=== PATIENT | female | born 1965 | race Caucasian/White ===

== ENCOUNTER → 2023-09-28 14:32 | Outpatient (REF) | payer OTHER, SELFPAY | LOC: RCS 14:32 | PROVIDERS: ATTENDING PHYSICIAN Internal Medicine Interventional Cardiology; FAMILY PHYSICIAN Family Medicine | DX: R00.2 Palpitations (principal); R07.9 Chest pain, unspecified; R06.09 Other forms of dyspnea | CPT/HCPCS: 93306 ==

== ENCOUNTER → 2023-09-29 08:27 | Outpatient (REF) | payer OTHER, SELFPAY | LOC: DHCBC/DCA 08:27 | PROVIDERS: ATTENDING PHYSICIAN Internal Medicine Interventional Cardiology; FAMILY PHYSICIAN Family Medicine | DX: R00.2 Palpitations (principal); R07.9 Chest pain, unspecified; R06.09 Other forms of dyspnea | CPT/HCPCS: 78452; 93017; A9500 ==

== ENCOUNTER → 2023-12-12 11:14 | Outpatient (REF) | payer OTHER, SELFPAY | LOC: RAD 11:14 | PROVIDERS: ATTENDING PHYSICIAN Internal Medicine Cardiovascular Disease; FAMILY PHYSICIAN Family Medicine | DX: R07.9 Chest pain, unspecified (principal) | CPT/HCPCS: 75574; Q9967 ==

== ENCOUNTER 2025-01-10 17:01 | Emergency (ER) | payer SELFPAY ==
[2025-01-10 17:04] VITALS: BP 157/80
--- NOTE | 2025-01-11 00:41 | ED.GENMED ---
History of Present Illness
General
Chief Complaint: Back Pain
Exam Limitations: none
Time Seen by Provider: 01/10/25 18:24
Nursing documentation reviewed up to this point in time: agreed with
History of Present Illness
History of Present Illness:
Patient states she injured her back approx 3 weeks ago at work while lifting. Initially seen at another ED. Had CT of low back completed. SHe states exam was normal. SHe was seen by workmans comp placed on NSaids and the returned to work on light
duty. She states the pain continues to worsen. Brought self to ED for eval. No weakness in extremities, no bowel or bladder symptoms, no saddle paresthesia.
Past History
Past History
ED Past Medical History: Asthma, Psychiatric (Depression, anxiety) and Other (Kidney stones, previous pancreatitis, IBS)
ED Past Surgical History: Gynecological (Hysterectomy)
Social History
Tobacco: Smoker
Alcohol: Daily
Personal:
Living: with family
Family History
Family History: Other (Alzheimer's)
Review of Systems
Review of Systems
Allergies reviewed?: Yes
All Other Systems: ROS reviewed and negative except as documented in HPI and ROS
Constitutional: Reports no symptoms
EENT: Reports no symptoms
Respiratory: Reports no symptoms
Cardiac: Reports no symptoms
ABD/GI: Reports no symptoms
: Reports no symptoms
Musculoskeletal: Reports back pain (bilateral lower back)
Skin: Reports no symptoms
Neurological: Reports no symptoms
Hematologic/Lymphatic: Reports no symptoms
Psychiatric: Reports no symptoms
Phy Exam
General Physical Exam
General Presentation: well appearing and no apparent distress
General age: appears stated age
General Skin: warm and dry
General Habitus: normal
General Mental: alert
Reflexes
Reflexes: +3: Left patellar and +3: Right patellar
Musculoskeletal Exam
Musculoskeletal Exam: full ROM and neuro vasc intact
Skin Exam
Skin Exam: normal color, warm/dry and no rash
Psychiatric Exam
Psychiatric Exam: normal mood/affect
Course
Vital Signs
Initial and Last Documented VS:
Initial Vital Signs
Temp Pulse Resp BP Pulse Ox
97.7 F 62 20 157/80 99
01/10/25 17:04 01/10/25 17:04 01/10/25 17:04 01/10/25 17:04 01/10/25 17:04
Last Documented Vital Signs
Temp Pulse Resp BP Pulse Ox
97.7 F 62 20 157/80 99
01/10/25 17:04 01/10/25 17:04 01/10/25 17:04 01/10/25 17:04 01/10/25 17:04
ED Attending Note
-
Portions of this chart may have been created with voice recognition software.� Occasional wrong word or��sound alike� substitutions may have occurred due to the inherent limitations of voice recognition software.
Discharge Plan
Departure
Patient Disposition: Home (Routine Discharge)
Date of Disposition: 01/10/25
Time of Disposition: 18:38
Patient with high blood pressure during this ER visit?: No
Condition: Good
Covid-19: Not Applicable
Discharge Problem:
Back pain
Instructions: Low Back Pain (DC)
Prescriptions:
New
hydrocodone-acetaminophen 5-325 mg tablet
1 tab PO Q4H PRN (Reason: Pain) Qty: 10 0RF
No Action
metoprolol succinate 25 mg Tablet Extended Release 24 Hr
25 mg PO DAILY
Multi For Her 50 Plus 400-80 mcg Capsule
1 cap PO DAILY
Referrals:
Familia Huynh MD [Active] - Call in 1-3 days for appt
Stand Alone Forms: Return to Work
Interventions
Interventions:
*Risk Screen - Suicide Last Done: 01/10/25 17:04
*General Assessment Last Done: 01/10/25 17:04
*Neglect/Abuse Screening Last Done: 01/10/25 17:04
*ED COVID-19 Vaccine History Last Done: 01/10/25 18:49
*Nursing Disposition Last Done: 01/10/25 18:57
ED-Musculoskeletal Assessment Last Done: 01/10/25 18:56
Discharge Date and Time
Discharge Date/Time: 01/10/25 19:01
Print Language: THAI
== END 2025-01-10 19:01 | disposition home or self-care (01) ==
LOC: EMR 17:01
PROVIDERS: EMERGENCY PHYSICIAN Emergency Medicine; FAMILY PHYSICIAN Family Medicine
DX: M54.9 Dorsalgia, unspecified (principal); F17.200 Nicotine dependence, unspecified, uncomplicated
CPT/HCPCS: 99283